=== PATIENT | male | born 2000 | race Caucasian/White ===

== ENCOUNTER 2021-12-14 19:35 | Outpatient (REF) | payer BC, SELFPAY ==
[2021-12-16 11:22] LABS: COVID-19 RT-PCR UVMMC Result Negative (Negative)
== END 2021-12-14 19:36 | disposition home or self-care (01) ==
LOC: LBN 19:35
PROVIDERS: Visit Provider Physician Assistant
DX: Z20.822 Contact with and (suspected) exposure to COVID-19 (principal)
CPT/HCPCS: U0003